=== PATIENT | female | born 1940 | race Caucasian/White ===

== ENCOUNTER 2024-07-13 12:02 | Inpatient (IN) | payer MEDICARE, BC ==
[~2024-07-13] VITALS: Ht 165.1 cm; Wt 63.7 kg
--- NOTE | 2024-07-13 11:41 | NUR ---
PT TO ROOM FROM VIA STRETCHER FROM ER. REPORT RECEIVED FROM ABRAHAN ONEAL. PT IS ALERT, ORIENTED, AND PLEASANT. PT DENIES PAIN AT THIS TIME. CALL LIGHT WITHIN REACH AND ROOM ORIENTATION DONE.
[~2024-07-13 12:02] MED LIST: ACETAMINOPHEN500 MG PO; ADULT LOW DOSE81 MG PO; AMLODIPINE BESYL5 MG PO; ATENOLOL25 MG PO; ATENOLOL50 MG PO; HYDROCHLOROTH12.5 MG PO; IBUPROFEN600 MG PO; LIPITOR20 MG; LISINOPRIL20 MG PO; NORVASC5 MG PO; OXYCODON-ACETA1 EAC2 PO; OXYCODONE HCL10 MG PO; TRAZODONE HCL100 MG PO; XARELTO10 MG PO; ZESTRIL10 MG PO
[2024-07-13] MEDS ORDERED: ANASTROZOLE1 MG PO (12:14)
[2024-07-13] MEDS ORDERED: DULOXETINE HCL30 MG PO (12:15)
[2024-07-13] MEDS ORDERED: TOLTERODINE TART4 MG PO (12:15)
[2024-07-13 12:18] LABS: BASOPHILS 0.4 % (0-2); EOSINOPHILS 0.4 % (0-6); HEMATOCRIT 29.5 % (35.0-50.0); HEMOGLOBIN 9.8 g/dL (12.0-18.0); LYMPHOCYTES 8.1 % (24-44); MCH 31.1 (27-36); MCHC 33.2 g/dl (30-36); MCV 93.6 fl (81-99); NEUTROPHILS 87.1 % (39-80); PLATELET COUNT 189 K/uL (140-440); RBC 3.16 M/ul (4.3-5.7); RDW 14.5 (10.5-15.0)
[2024-07-13 12:34] LABS: ALBUMIN 2.9 g/dL (3.4-5.0); ALBUMIN/GLOBULIN RATIO 1.16 (1.1-2.4); ANION GAP 13.3 (7-21); BILIRUBIN, TOTAL 0.4 ng/dL (0.2-1.0); BUN/CREATININE RATIO 56.16 (6.0-28.6); CALCIUM 8.4 mg/dL (8.5-10.1); CREATININE, SERUM 0.73 mg/dL (0.55-1.02); POTASSIUM 4.3 mmol/L (3.5-5.1); PROTEIN, TOTAL 5.4 g/dL (6.4-8.2)
[2024-07-13 13:29] LABS: ABO O; ANTIBODY SCREEN NEGATIVE; RH POSITIVE
[2024-07-13] MEDS ORDERED: ACETAMINOPHEN 500 MG TAB PO PRN (13:45)
[2024-07-13] MEDS ORDERED: LISINOPRIL20 MG PO (14:01)
[2024-07-13] MEDS ORDERED: ATORVASTATIN CA10 MG PO (14:01)
--- NOTE | 2024-07-13 14:14 | NUR ---
UR CLINICAL REVIEW: 2MN MEGA, MEETS OBS CRITERIA MEDICARE OBS 07/13/24 @ 1334 ORDER MATCHES STATUS NO AUTH REQUIRED PER MEDICARE RULES DC PLAN PENDING, LIKELY RETURN HOME WHEN STABLE.
[2024-07-13 14:20] VITALS: BP 130/57
[2024-07-13 14:26] LABS: PARTIAL THROMBOPLASTIN TIME 22.4 Sec (22.9-41.3)
[2024-07-13 14:28] LABS: INR 1.12 (0.80-1.30); PROTIME 13.7 Sec (11.2-14.2)
--- NOTE | 2024-07-13 15:12 | NUR ---
RESTING IN BED, NO REQUESTS AT THIS TIME. CALL LIGHT WITHIN REACH.
[2024-07-13 15:19] VITALS: BP 130/57
--- NOTE | 2024-07-13 15:20 | NUR ---
PATIENT IN BED AT THIS TIME. CALL LIGHT WITHIN REACH, NO FURTHER NEEDS AT THIS TIME.
--- NOTE | 2024-07-13 15:44 | NUR ---
MED REC COMPLETE
--- NOTE | 2024-07-13 16:50 | NUR ---
PT WAS JUST UP TO USE THE RESTROOM INDEPENDENTLY, TOLERATED WELL. PT HAD SM LIQUID BLOODY STOOL AND ALSO URINATED WITHOUT DIFFICULTY. PT'S IN ROOM VISITING. CALL LIGHT WITHIN REACH, NO REQUESTS AT THIS TIME.
[2024-07-13 18:13] VITALS: BP 114/52
--- NOTE | 2024-07-13 18:21 | NUR ---
PATIENT IN BED AT THIS TIME. PATIENT ASKED CRECHE ATTENDANT TO PLUG IN PATIENTS PHONE, CRECHE ATTENDANT PLUGGED IN PATIENT PHONE AT THIS TIME. CALL LIGHT WITHIN REACH, PATIENT HAS NO FURTHER NEEDS.
--- NOTE | 2024-07-13 18:30 | NUR ---
PT RESTING IN BED WITH CALL LIGHT WITHIN REACH. NO REQUESTS AT THIS TIME.
--- NOTE | 2024-07-13 19:38 | NUR ---
REPORT RECIEVED FROM DAY SHIFT RN. PATIENT RESTING IN BED, DENIES NEEDS AT THIS TIME. CALL LIGHT IN REACH.
--- NOTE | 2024-07-13 20:22 | NUR ---
ON FLOOR. STATES HE DOES NOT WANT A PHONE CALL ABOUT 2100 LABS THIS EVENING UNLESS HEMOGLBIN IS BELOW 8.
[2024-07-13] MEDS ORDERED: MELATONIN 3 MG TAB PO PRN (21:00)
[2024-07-13 21:06] LABS: BASOPHILS 0.9 % (0-2); EOSINOPHILS 0.4 % (0-6); HEMATOCRIT 25.7 % (35.0-50.0); HEMOGLOBIN 8.5 g/dL (12.0-18.0); LYMPHOCYTES 12.3 % (24-44); MCH 30.9 (27-36); MCV 93.8 fl (81-99); MONOCYTES 6.4 % (0-12); PLATELET COUNT 175 K/uL (140-440); RBC 2.74 M/ul (4.3-5.7); RDW 14.5 (10.5-15.0)
[2024-07-13 21:22] VITALS: BP 116/55
--- NOTE | 2024-07-13 21:24 | NUR ---
DATA WAREHOUSING ARCHITECT OBTAINED VITALS AND I&O. PT GIVEN FESH ICE WATER UPON REQUEST. PT STATES NO FURTHER NEEDS AT THIS TIME. CALL LIGHT WITHIN REACH.
--- NOTE | 2024-07-13 21:36 | NUR ---
PATIENT STATES SHE IS HAVING HEART. THIS RN PLACED CALL TO MD REGARDING HEART BURN SINCE NIO MAALOX IS NOT A CLEAR LIQUID. NEW ORDERS RECIEVED. VERIFIED USING REPEAT BACK METHOD. MD STATES "IF SHE IS STILL EXPERIENCING HEARTBURN DURING THE NIGHT YOU ARE OK TO ORDER HER MAALOX".
[2024-07-13] MEDS ORDERED: CALCIUM CARBONATE 500 MG CHEW PO ONE (21:45)
[2024-07-13] MEDS ORDERED: FAMOTIDINE 20 MG/ 2 ML VIAL IV ONE (21:45)
--- NOTE | 2024-07-13 22:08 | NUR ---
SCHEDULED MEDICATION ADMINISTERED. IV FLUSHES WNL. ASSESSMENT COMPLETE. PATIENT DENIES PAIN AT THIS TIME. PATIENT UP TO BATHROOM INDEPENDENTLY TO URINATE. PATIENT DID NOT HAVE BM AT THIS TIME. PATIENT DENIES BLOOD OR STOOL IN HER PAD. PATIENT BCAK TO BED. PATIENT HAS NO FURTHER NEEDS. BED ALARM ON FOR SAFETY. CALL LIGHT IN REACH.
--- NOTE | 2024-07-13 23:32 | NUR ---
PATIENT RESTING IN BED WITH EYES CLOSED. RESPIRATIONS EVEN AND UNLABORED. CALL LIGHT IN REACH.
[2024-07-14] VITALS (11 sets, daily range): BP systolic 104–131; BP diastolic 48–60
--- NOTE | 2024-07-14 01:18 | NUR ---
VS AND I&Os OBTAINED AND RECORDED. PATIENT UP TO BATHROOM INDEPENDENTLY TO URINATE. PATIENT BCAK TO BED. PATIENT DENIES BLOOD IN PAD OR PAIN. PATIENT BACK TO BED. PATIENT HAS NO FURTHER NEEDS. BED ALARM ON FOR SAFETY. CALL LIGHT IN REACH.
--- NOTE | 2024-07-14 03:30 | NUR ---
PATIENT RESTING IN BED ON RIGHT SIDE WITH EYES CLOSED. RESPIRATIONS EVEN AND UNLABORED. CALL LIGHT IN REACH.
--- NOTE | 2024-07-14 05:28 | NUR ---
CIVIL STRUCTURAL DESIGNER OBTIANED VITALS AND I&O. PT STATES NO NEEDS AT THIS TIME. CALL LIGHT WITHIN REACH.
[2024-07-14 05:29] LABS: BASOPHILS 0.7 % (0-2); EOSINOPHILS 2.2 % (0-6); HEMATOCRIT 23.7 % (35.0-50.0); HEMOGLOBIN 7.9 g/dL (12.0-18.0); LYMPHOCYTES 19.7 % (24-44); MCH 31.4 (27-36); MCHC 33.6 g/dl (30-36); MCV 93.7 fl (81-99); MONOCYTES 9.2 % (0-12); NEUTROPHILS 68.2 % (39-80); PLATELET COUNT 157 K/uL (140-440); RBC 2.53 M/ul (4.3-5.7); RDW 14.3 (10.5-15.0)
[2024-07-14 05:41] LABS: ANION GAP 9.9 (7-21); BUN/CREATININE RATIO 31.94 (6.0-28.6); CALCIUM 8.2 mg/dL (8.5-10.1); CREATININE, SERUM 0.72 mg/dL (0.55-1.02); MAGNESIUM 1.9 mg/dL (1.8-2.4); POTASSIUM 3.9 mmol/L (3.5-5.1)
--- NOTE | 2024-07-14 05:54 | NUR ---
BED ALARM ANSWERED. PT SITTING AT EDGE OF BED STATING THAT SHE NEEDED TO USE BATHROOM. MAIL AGENT SBA TO BATHROOM. PT VOIDED AND WAS ASSISTED BACK TO BED. OUTPUT NOTED. PT GIVEN FRESH ICE WATER UPON REQUEST. PT STATES NO FURTHER NEEDS AT THIS TIME. CALL LIGHT WITHIN REACH AND BED ALARM ON.
--- NOTE | 2024-07-14 07:15 | NUR ---
REPORT RECIEVED FROM JM VALENZUELA. PT LAYING IN BED WITH EYES CLOSED, RR EVEN AND UNLBAORED. NO NEEDS IDENTIFIED AT THIS TIME. CALL LIGHT IN REACH. BED ALARM ON.
--- NOTE | 2024-07-14 08:08 | NUR ---
PATIENT IN BED AT THIS TIME. CALL LIGHT WITHIN REACH, NO FURTHER NEEDS AT THIS TIME.
--- NOTE | 2024-07-14 08:53 | NUR ---
VISITED TO INQUIRE IF PT DESIRED CREDIT REFERENCE CLERK VISIT. PT ACCEPTED OFFER. SCREEN ROOM OPERATOR RELAYED REQUEST TO CREDIT REFERENCE CLERK VIA NOT IN SACRISTRY PRE USUAL PRACTICE.
[2024-07-14] MEDS ORDERED: DULOXETINE HCL 30 MG CAP PO SCH (09:00)
[2024-07-14] MEDS ORDERED: ANASTROZOLE 1 MG TAB PO SCH (09:00)
[2024-07-14] MEDS ORDERED: PANTOPRAZOLE SODIUM 40 MG TABEC PO SCH (09:00)
--- NOTE | 2024-07-14 09:52 | NUR ---
IN TO ADMINISTER MEDICAITONS, SEE MAR. PT SITTING UP IN BED AND TAKES PO MEDICATIONS WITH NO ISSUES. PT DENIES PAIN, NAUSEA, DIZZINESS OR LIGHTHEADEDNESS AT THIS TIME. ASSESSMENT COMPLETE. LUNG SOUNDS CLEAR. BOWEL TONES ACTIVE. ABD SOFT AND NON-TENDER WITH PALPATION. RADIAL PULSES PALPABLE, EQUAL AND STRONG. PEDAL PULSES PALPABLE, EQUAL AND STRONG. 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 IV FLUSHES WNL. HAT IN TOILET EMPTIED. TRAY REMOVED. WATER PROVIDED. PT DENIES ANY OTHER NEEDS AT THIS TIME. CALL LIGHT IN REACH. PT A&O TO ALL.
--- NOTE | 2024-07-14 11:04 | NUR ---
PATIENT IN BED AT THIS TIME. VITALS AND I&O'S CHARTED. CALL LIGHT WITHIN REACH, NO FURTHER NEEDS AT THIS TIME.
--- NOTE | 2024-07-14 11:16 | NUR ---
Spoke with Caity. She states she and her spouse live on [address]. Spouse has back issues and frequent falls. Caity is his cg. He is unable to stay alone. She states they live in a 1 story home with 3 steps. She is active, drives, and does not use any DME. There are grab bars in the walk in shower and the bathroom. She denies any financial issues. She plans on dc to home when she is cleared medically.
--- NOTE | 2024-07-14 11:26 | NUR ---
IN TO ROUND ON PT. PT SITTING UP IN BED AND RESPONDS WHEN ADDRESSED. PT REPORTING USING RESTROOM. HAT EMPTIED. PT DENIES ANY OTHER NEEDS AT THIS TIME. CALL LIGHT IN REACH.
[2024-07-14] MEDS ORDERED: PHARMACY RENAL DOSE ADJUSTMENT 1 DOSE MISC PO SCH (12:00)
--- NOTE | 2024-07-14 13:30 | NUR ---
IN TO ROUND ON PT. PT SITTING UP IN BED VISITING WITH GRANDSON. FEMALE VISITOR ARRIVES TO ROOM. PT REPORTING BEING DONE WITH LUNCH TRAY, TRAY REMOVED. PT DENIES ANY OTHER NEEDS AT THIS TIME. CALL LIGHT IN REACH.
--- NOTE | 2024-07-14 13:50 | NUR ---
PATIENT IN BED AT THIS TIME. VITALS AND I&O'S CHARTED. CALL LIGHT WITHIN REACH, NO FURTHER NEEDS AT THIS TIME.
[2024-07-14 14:04] LABS: BASOPHILS 0.8 % (0-2); EOSINOPHILS 1.8 % (0-6); HEMATOCRIT 24.9 % (35.0-50.0); HEMOGLOBIN 8.3 g/dL (12.0-18.0); LYMPHOCYTES 20.8 % (24-44); MCH 31.3 (27-36); MCHC 33.4 g/dl (30-36); MCV 93.6 fl (81-99); MONOCYTES 8.2 % (0-12); NEUTROPHILS 68.4 % (39-80); PLATELET COUNT 165 K/uL (140-440); RBC 2.66 M/ul (4.3-5.7); RDW 14.6 (10.5-15.0)
--- NOTE | 2024-07-14 15:48 | NUR ---
IN TO ROUND ON PT. PT SITTING UP IN BED VISITING WITH GRANDSON. PT DENIES NAUSEA, LIGHT HEADED, DIZZINESS. ASSESSMENT COMPLETE. BOWEL TONES ACTIVE. ABD SOFT AND NON-TENDER WITH PALPATION. WATER PROVIDED. PT DENIES ANY OTHER NEEDS AT THIS TIME. CALL LIGHT IN REACH.
--- NOTE | 2024-07-14 16:18 | NUR ---
Pt report received from JM Brunner
--- NOTE | 2024-07-14 18:13 | NUR ---
PATIENT IN BED AT THIS TIME. VITALS AND I&O'S CHARTED. CALL LIGHT WITHIN REACH, NO FURTHER NEEDS AT THIS TIME.
--- NOTE | 2024-07-14 19:32 | NUR ---
REPORT RECIEVED FROM DAY SHIFT RN. PATIENT RESTING IN BED WITH VISITOR IN ROOM. PATIENT HAS NO CURRENT NEEDS. CALL LIGHT IN REACH.
--- NOTE | 2024-07-14 20:35 | NUR ---
PATIENT RESTING IN BED WITH DAUGHTER IN LAW IN THE ROOM. VS AND I&Os OBTAINED AND RECORDED. IV FLUSHED WNL. ASESSMENT COMPLETE. PATIENT DENIES PAIN. NO FURTHER NEEDS AT THIS TIME. CALL LIGHT IN REACH.
[2024-07-14 21:07] LABS: EOSINOPHILS 2.2 % (0-6); HEMATOCRIT 23.9 % (35.0-50.0); HEMOGLOBIN 7.9 g/dL (12.0-18.0); LYMPHOCYTES 22.7 % (24-44); MCH 31.1 (27-36); MCHC 33.2 g/dl (30-36); MCV 93.8 fl (81-99); MONOCYTES 9.9 % (0-12); NEUTROPHILS 64.2 % (39-80); PLATELET COUNT 161 K/uL (140-440); RBC 2.54 M/ul (4.3-5.7); RDW 14.4 (10.5-15.0)
--- NOTE | 2024-07-14 22:39 | NUR ---
PATIENT RESTING IN ROOM SITTING AT THE EDGE OF THE BED. PATIENT DENIES NEEDS AT THIS TIME. CALL LIGHT IN REACH.
--- NOTE | 2024-07-15 00:42 | NUR ---
PATIENT RESTING IN BED ON RIGHT SIDE WITH EYES CLOSED. RESPIRATIONS EVEN AND UNLABORED. CALL LIGHT IN REACH.
--- NOTE | 2024-07-15 02:27 | NUR ---
PATIENT RESTING IN BED WITH EYES CLOSED. RESPIRATIONS EVEN AND UNLABORED. CALL LIGHT IN REACH.
--- NOTE | 2024-07-15 03:52 | NUR ---
PATIENT RESTING IN BED WITH EYES CLOSED. RESPIRATIONS EVEN AND UNLABORED. CALL LIGHT IN REACH.
[2024-07-15 05:17] VITALS: BP 162/69
--- NOTE | 2024-07-15 05:25 | NUR ---
VS AND I&Os OBTAINED AND REOCRDED. PATIENT STATES "I WILL TELL YA, THERE WAS SOME BLOOD WHEN I WIPED". PATIENT STATES SHE DID NOT HAVE A BM, AND THE BLOOD WAS A BRIGHT RED COLOR. PATIENT DENIES PAIN. BOWEL TONES ACTIVE. THIS RN WAS ABOUT TO LEAVE THE ROOM AND PATIENT STATES "OH, I THINK THIS THING JUST CAME OUT. I HAVE BEEN MOVING AROUND". IV WAS OUT OF ARM, WITH TIP INTACT. PATIENT NO FURTHER NEEDS. CALL LIGHT IN REACH.
[2024-07-15 05:27] LABS: BASOPHILS 0.6 % (0-2); EOSINOPHILS 3.9 % (0-6); HEMATOCRIT 23.6 % (35.0-50.0); LYMPHOCYTES 19.4 % (24-44); MCH 31.5 (27-36); MCHC 33.8 g/dl (30-36); MCV 93.4 fl (81-99); MONOCYTES 8.2 % (0-12); NEUTROPHILS 67.9 % (39-80); PLATELET COUNT 153 K/uL (140-440); RBC 2.53 M/ul (4.3-5.7); RDW 14.7 (10.5-15.0)
--- NOTE | 2024-07-15 06:42 | NUR ---
UPDATED VIA TELEPHONE REGARDING PATIENTS NO IV ACCESS. STATES "IT IS OK TO LEAVE THE IV OUT FOR NOW. I WILL COME SEE HER".
--- NOTE | 2024-07-15 07:15 | NUR ---
REPORT REC'D FROM FLORINA ONEAL. PT RESTING IN BED, NO ACUTE DISTRESS OR C/O NOTED
[2024-07-15 09:37] VITALS: BP 165/76
[2024-07-15] MEDS ORDERED: atenoloL 25 MG TAB PO SCH (09:40)
[2024-07-15] MEDS ORDERED: lisinopriL 20 MG TAB PO SCH (09:41)
[2024-07-15 10:27] VITALS: BP 165/76
[2024-07-15 11:06] VITALS: BP 124/57
--- NOTE | 2024-07-15 11:06 | NUR ---
DID HRLY ROUNDING ON PT SHE IS SITTING IN THE CHAIR ON HER IPAD. I ASKED PT IF SHE NEEDED ANYTHING PT DIDNT. NURSE CAME IN TO GIVE HER MEDICATION CALL LIGHT IS WITHIN REACH.
== END 2024-07-15 12:47 | disposition home or self-care (01) | DRG 379 ==
LOC: ED 12:02 → MS 12:04
PROVIDERS: Emergency Medicine; ADMIT Student in an Organized Health Care Education/Training Program; ATTEND Student in an Organized Health Care Education/Training Program
DX: K92.1 Melena (principal); I10 Essential (primary) hypertension; F39 Unspecified mood [affective] disorder; Z66 Do not resuscitate; Z98.890 Other specified postprocedural states; Z92.21 Personal history of antineoplastic chemotherapy; Z85.3 Personal history of malignant neoplasm of breast; Z87.19 Personal history of other diseases of the digestive system; Z87.891 Personal history of nicotine dependence; Z79.899 Other long term (current) drug therapy; Z79.82 Long term (current) use of aspirin
CPT/HCPCS: 36415; 80048; 80053; 83735; 85025; 85610; 85730; 86850; 86900; 86901; 96374; A9270; G0378

== ENCOUNTER 2024-08-15 10:01 | Inpatient (IN) | payer MEDICARE, BC ==
[~2024-08-15] VITALS: Ht 165.1 cm; Wt 62.0 kg
[~2024-08-15 10:01] MED LIST changes: +ANASTROZOLE1 MG PO; +ATORVASTATIN CA10 MG PO; +DULOXETINE HCL30 MG PO; -HYDROCHLOROTH12.5 MG PO; +TOLTERODINE TART4 MG PO
[2024-08-15 10:46] LABS: BASOPHILS 1.3 % (0-2); EOSINOPHILS 1.9 % (0-6); HEMATOCRIT 28.6 % (35.0-50.0); HEMOGLOBIN 9.4 g/dL (12.0-18.0); LYMPHOCYTES 13.7 % (24-44); MCH 30.7 (27-36); MCHC 32.8 g/dl (30-36); MCV 93.6 fl (81-99); MONOCYTES 8.3 % (0-12); NEUTROPHILS 74.8 % (39-80); PLATELET COUNT 249 K/uL (140-440); RBC 3.06 M/ul (4.3-5.7); RDW 15.5 (10.5-15.0)
[2024-08-15 10:52] LABS: PROTIME 12.8 Sec (11.2-14.2)
[2024-08-15 10:54] LABS: PARTIAL THROMBOPLASTIN TIME 20.8 Sec (22.9-41.3)
[2024-08-15 10:57] LABS: ALBUMIN 3.4 g/dL (3.4-5.0); ALBUMIN/GLOBULIN RATIO 1.17 (1.1-2.4); ANION GAP 12.6 (7-21); BILIRUBIN, TOTAL 0.3 ng/dL (0.2-1.0); BUN/CREATININE RATIO 34.31 (6.0-28.6); CALCIUM 9.3 mg/dL (8.5-10.1); CREATININE, SERUM 1.02 mg/dL (0.55-1.02); POTASSIUM 4.6 mmol/L (3.5-5.1); PROTEIN, TOTAL 6.3 g/dL (6.4-8.2)
[2024-08-15 11:17] LABS: ABO O; ANTIBODY SCREEN NEGATIVE; RH POSITIVE
[2024-08-15 12:43] LABS: BASOPHILS 0.7 % (0-2); EOSINOPHILS 1.7 % (0-6); HEMOGLOBIN 8.6 g/dL (12.0-18.0); MCH 30.8 (27-36); MCHC 33.1 g/dl (30-36); MONOCYTES 8.1 % (0-12); NEUTROPHILS 76.5 % (39-80); PLATELET COUNT 218 K/uL (140-440); RDW 15.5 (10.5-15.0)
[2024-08-15] MEDS ORDERED: PANTOPRAZOLE SODIUM 40 MG/10 ML VIAL IV ONE (13:00)
[2024-08-15] MEDS ORDERED: PANTOPRAZOLE SODIUM 40 MG/10 ML VIAL IV SCH (13:31)
[2024-08-15 14:02] VITALS: BP 116/50
--- NOTE | 2024-08-15 14:05 | NUR ---
REPORT RECEIVED FROM SHANT Oneal RN IN ED. VINH Hitchcock RN AND THIS RN BRING PT TO ROOM 123. VS AND WT TAKEN. PT ADMITTED. ASSESSMENT COMPLETE. PT ALERT AND ORIENTED, PLEASANT. LUNG SOUNDS CLEAR THROUGHOUT, HEART TONES HEARD, NOTED SLIGHTLY MINERVA AT 58BPM. PT BOWEL TONES HEARD AND ACTIVE, TENDER TO RUQ. PT REPORTS EPISODE OF BLACK STOOL THIS AM BEFORE COMING TO HOSPITAL. PT PULSES FELT STRONG IN BUE, FAINT IN BLE, CAP REFILL NOTED AT 5 SECONDS IN FINGERS AND TOES. PT REPORTS CHRONIC NUMBNESS IN BLE, STATES "IT SOMETIMES FEELS LIKE A TIGHT BELT IS AROUND MY FEET." PT REPORTING 5/10 PAIN IN LEFT LOWER BACK, STATES THIS IS CHRONIC. HEAT PAD OFFERED AND ACCEPTED. PT REQUESTS USING THE RESTROOM, PT AMBULATES WITH SBA AND URINATES CLEAR, YELLOW URINE. PT WEAR PADS CHRONICALLY FOR DRIBBLING, SHE CHANGES IT AT THIS TIME. NO OTHER NEEDS NOTED, CALL LIGHT AND PERSONAL BELONGINGS IN REACH.
[2024-08-15] MEDS ORDERED: AMLODIPINE BESYL5 MG PO (14:10)
[2024-08-15 14:28] LABS: EOSINOPHILS 1.7 % (0-6); HEMATOCRIT 26.1 % (35.0-50.0); HEMOGLOBIN 8.6 g/dL (12.0-18.0); LYMPHOCYTES 14.5 % (24-44); MCH 30.6 (27-36); MCHC 32.7 g/dl (30-36); MCV 93.5 fl (81-99); MONOCYTES 8.2 % (0-12); NEUTROPHILS 74.6 % (39-80); PLATELET COUNT 227 K/uL (140-440); RDW 15.3 (10.5-15.0)
--- NOTE | 2024-08-15 15:14 | NUR ---
IN WITH DR. SHEETS AND VINH Hitchcock RN. KORTNEY EXAMINES PT AND ANSWERED QUESTIONS, EDUCATES PT ON POSSIBLE CAUSES OF BLEEDING. KORTNEY STATES HE PLANS ON PERFORMING ENDOSCOPY AND COLONOSCOPY TOMORROW 08/16/24. PT EXPRESSES UNDERSTANDING IS AGREEABLE TO PLAN. NO OTHER NEEDS AT THIS TIME, CALL LIGHT AND PERSONAL BELONGINGS IN REACH.
--- NOTE | 2024-08-15 15:21 | NUR ---
PATIENT ALERT AND ORIENTED, SITTING UP IN BED. STATES SHE LIVES IN HOUSE WITH SPOUSE. DEMOGRAPHICS VERIFIED. PHYSICAL ADDRESS IS [address] [place] [address], [place] [address]. STATES 3 STEPS TO GET INSIDE, SHE HAS NO ISSUES WITH STAIRS. STATES SHE USES NO DME, BUT HAS WALKER AND CANE IN HOME THAT BELONG TO SPOUSE. STATES SHE CONTINUES TO DRIVE WITHOUT ISSUES. NO FINANCIAL HARDSHIP AT THIS TIME. STATES SHE IS ABLE TO PAY UTILITIES, FOR FOOD AND MEDICATIONS. DENIES ANY NEEDS AT HOME AT THIS TIME. STATES SHE WILL NOTIFY STAFF IF NEEDS ARISE.
[2024-08-15] MEDS ORDERED: POLYETHYLENE GLYCOL 3350 BOTTLE PO ONE (15:30)
[2024-08-15] MEDS ORDERED: I-CAPS WITH LU1 EACH PO (15:36)
[2024-08-15] MEDS ORDERED: VITAMIN D325 MCG PO (15:36)
[2024-08-15] MEDS ORDERED: VITAMIN C500 M1 PO (15:36)
[2024-08-15] MEDS ORDERED: IRON325 M1 PO (15:37)
[2024-08-15] MEDS ORDERED: HYDROCHLOROTH12.5 MG PO (15:37)
--- NOTE | 2024-08-15 15:38 | NUR ---
MED REC COMPLETE
--- NOTE | 2024-08-15 15:51 | NUR ---
IN TO ADMINISTER PT MEDICATION PER JAN. PT IS STARTING BOWEL PREP PRIOR TO PLANNED AM COLONOSCOPY/ENDOSCOPY. BSC MOVED NEAR PT BEDSIDE, TOILET PAPER PROVIDED. PT ADVISED TO CALL SOON SHE FEELS ANY "RUMBLINGS" IN HER STOMACH. PT IN GOOD SPIRITS. NO OTHER NEEDS NOTED AT THIS TIME, CALL LIGHT AND PERSONAL BELONGINGS IN REACH.
--- NOTE | 2024-08-15 16:37 | NUR ---
IN TO ROUND ON PT. PT MCFP THROUGH BOWEL PREP (ONE BOTTLE EMPTY, JUST STARTING ON SECOND BOTTLE). PT REPORTS NO NEEDS AT THIS TIME, CALL LIGHT AND PERSONAL BELONGINGS IN REACH.
--- NOTE | 2024-08-15 17:21 | NUR ---
IN PT CALLING TO USE RESTROOM. PT HAS LARGE WATERY BLACK STOOL. PT REPORTS NO DIZZINESS OR LIGHTHEADEDNESS WITH AMBULATION. NO N/V. NO NEEDS AT THIS TIME, CALL LIGHT AND PERSONAL BELONGINGS IN REACH.
[2024-08-15 17:24] VITALS: BP 116/50
[2024-08-15 17:32] VITALS: BP 96/53
--- NOTE | 2024-08-15 18:06 | NUR ---
PATIENT UP TO BATHROOM AND BACK TO BED, SBA. CALL LIGHT IN REACH. NO FURTHER NEEDS AT THIS TIME.
--- NOTE | 2024-08-15 18:53 | NUR ---
PATIENT IN BED AT THIS TIME. INDUSTRIAL ELECTRICIAN CHARTED VITALS AND I&O'S. CALL LIGHT WITHIN REACH, NO FURTHER NEEDS AT THIS TIME.
--- NOTE | 2024-08-15 19:24 | NUR ---
REPORT RECIEVED FROM DAY SHIFT RN. PATIENT RESTING IN BED. DENIES NEEDS AT THIS TIME. CALL LIGHT IN REACH.
[2024-08-15 20:53] VITALS: BP 93/46
[2024-08-15] MEDS ORDERED: DULOXETINE HCL 30 MG CAP PO SCH (21:00)
--- NOTE | 2024-08-15 21:23 | NUR ---
MD TO FLOOR. THIS RN TALKED WITH MD REGARDING PATIENT NOT ON IV FLUID AND PATIENTS RECENT BP. NEW ORDERS RECIEVED. ORDERS VERIFIED USING REPEAT BACK METHOD.
[2024-08-15] MEDS ORDERED: LACTATED RINGER'S 1,000 ML IV SCH (21:30)
[2024-08-15] MEDS ORDERED: LACTATED RINGER'S 1,000 ML IV ONE (21:30)
[2024-08-15 21:39] VITALS: BP 93/46
--- NOTE | 2024-08-15 22:00 | NUR ---
PATIENT RESTING IN BED. SCHEDULED MEDICATION ADMINISTERED. IV FLUID INFUSING PER ORDER. IV FLUSHES WNL. PATIENT EDUCATED TO CALL IF SHE FEELS LIGHT HEADED OR NEED HELPS USING THE BSC. PATIENT VEBILIZES UNDERSTANDING. ASSESSMENT COMPLETE. CALL LIGHT WITHIN REACH.
[2024-08-15 22:08] LABS: BASOPHILS 0.8 % (0-2); EOSINOPHILS 2.3 % (0-6); HEMATOCRIT 26.1 % (35.0-50.0); HEMOGLOBIN 8.5 g/dL (12.0-18.0); LYMPHOCYTES 15.1 % (24-44); MCH 30.8 (27-36); MCHC 32.8 g/dl (30-36); MONOCYTES 8.4 % (0-12); NEUTROPHILS 73.4 % (39-80); PLATELET COUNT 239 K/uL (140-440); RBC 2.77 M/ul (4.3-5.7); RDW 15.6 (10.5-15.0)
--- NOTE | 2024-08-15 22:25 | NUR ---
PATIENT BSC EMPTIED. PATIENT BACK TO BED. NO FURTHER NEEDS. CALL LIGHT IN REACH.
--- NOTE | 2024-08-15 23:00 | NUR ---
NEW BAG IV FLUID INFUSING PER ORDER. NO FURTHER NEEDS. CALL LIGHT IN REACH.
[2024-08-16] VITALS (11 sets, daily range): BP systolic 104–137; BP diastolic 43–55
--- NOTE | 2024-08-16 00:28 | NUR ---
PATIENT RESTING IN BED. DENIES NEEDS AT THIS TIME. PATIENT NPO WITH NO FLUIDS AT BEDSIDE. NO FURTHER NEEDS. CALL LIGHT IN REACH.
--- NOTE | 2024-08-16 01:18 | NUR ---
PATIENT RESTING IN BED. VS AND I&Os OBTAINED AND RECORDED. PATIENT DENIES PAIN. PATIENT HAS NO FURTHER NEEDS. CALL LIGHT IN REACH.
--- NOTE | 2024-08-16 02:58 | NUR ---
PATIENT RESTING IN BED ON BACK WITH EYES CLOSED. RESPIRATIONS EVEN AND UNLABORED. CALL LIGHT IN REACH.
--- NOTE | 2024-08-16 04:47 | NUR ---
PATIENT RESTING IN BED. DENIES NEEDS AT THIS TIME. CALL LIGHT IN REACH.
--- NOTE | 2024-08-16 05:46 | NUR ---
PATIENT RESTING IN BED. PATIENT CONSENT SIGNED. NEW GOWN PLACED ON PATIENT. JEWERLY AND UNDERWEAR REMOVED OFF OF PATIENT. PATIENTS PURSE WITH JEWERLY ARE IN PATIENTS CLOSET IN ROOM. PATIENT STATES SHE IS COMFORTABLE WITH THEM STAYING IN THERE. LR WITH STRAIGHT TUBING AND EXTENSION SET HUNG IN ROOM. PATIENT DENIES FURTHER NEEDS OR QUESTIONS. PATIENT HAS NO FURTHER NEEDS. CALL LIGHT IN REACH.
[2024-08-16 05:47] LABS: BASOPHILS 1.1 % (0-2); EOSINOPHILS 2.7 % (0-6); HEMATOCRIT 25.5 % (35.0-50.0); HEMOGLOBIN 8.3 g/dL (12.0-18.0); LYMPHOCYTES 19.3 % (24-44); MCH 30.7 (27-36); MCHC 32.6 g/dl (30-36); MCV 94.3 fl (81-99); MONOCYTES 8.9 % (0-12); PLATELET COUNT 212 K/uL (140-440); RDW 15.4 (10.5-15.0)
[2024-08-16 05:58] LABS: BUN/CREATININE RATIO 24.39 (6.0-28.6); CALCIUM 8.9 mg/dL (8.5-10.1); CREATININE, SERUM 0.82 mg/dL (0.55-1.02)
[2024-08-16] MEDS ORDERED: CEFAZOLIN SODIUM 2 GM/20 ML SYR ONE (06:21)
[2024-08-16] MEDS ORDERED: CEFAZOLIN SODIUM 2 GM/20 ML SYR IV ONE ×2 (06:30→10:00)
--- NOTE | 2024-08-16 06:42 | NUR ---
PATIENT RESTING IN BED. SCHEDULED IV ABX ADMINISTERED PER ORDER. PATIENT DENIES FURTHER NEEDS. CALL LIGHT IN REACH.
--- NOTE | 2024-08-16 07:05 | NUR ---
PT AWAKE AND ALERT, TRANSFERRED WITH SBA FROM BED TO STRETCHER. DOWN FOR PROCEDURES WITH OR STAFF.
[2024-08-16] MEDS ORDERED: IBLOOD GLUCOSE TEST STRIP 1 EA TEST VI PRN (07:15)
[2024-08-16] MEDS ORDERED: NALOXONE HCL 0.4 MG SYR IV PRN (07:15)
[2024-08-16] MEDS ORDERED: fentaNYL citrate 50 MCG/ML SDV IV PRN (07:15)
[2024-08-16] MEDS ORDERED: LIDOCAINE HCL 2% 5 ML SDV ONE (07:36)
[2024-08-16] MEDS ORDERED: propofoL 200 MG/20 ML VIAL ONE (08:08)
--- NOTE | 2024-08-16 08:33 | NUR ---
08/16/24 0833 Peggy Martinez 0818 PT ARRIVED IN PACU SLEEPY WITH NO C/O'S. ABD SOFT. 0830 OXYGEN REMOVED. SATS 95-99% ON RA.
[2024-08-16] MEDS ORDERED: FLU VACC TS2024(65UP)/MF59C/PF 1 EACH SYR IM SCH (09:00)
--- NOTE | 2024-08-16 09:10 | NUR ---
PT BROUGHT BACK FROM PACU PER STRETCHER AND REPORT RECEIVED FROM PREETI ONEAL. PT AMBULATED WITH MINIMAL ASSIST FROM STRETCHER IN [place] TO BED IN HER ROOM. PT TOLERATED WELL. VS TAKEN. INSTRUCTED PT TO CALL FOR ASSISTANCE IF SHE NEEDS TO USE THE RESTROOOM, PT STATED UNDERSTANDING. CALL LIGHT WITHIN REACH. NO REQUESTS AT THIS TIME.
[2024-08-16] MEDS ORDERED: PANTOPRAZOLE SODIUM 40 MG TABEC PO SCH (09:30)
--- NOTE | 2024-08-16 09:30 | NUR ---
Spoke with Caity. She has returned from her EGD/Cscope. She denies needs. States she has a duodenal ulcer. plans on pt staying tonight and will dc to home. Caity states her sister is here and staying with Samir while she is in the hospital. Plans on dc to home tomorrow.
--- NOTE | 2024-08-16 09:48 | NUR ---
UR CLINICAL REVIEW: 2 MN FOR VERSALUS-MEETS INPT CRITERIA MEDICARE INPT 08/15/24 @ 1332 ORDER MATCHES REG NO AUTH REQUIRED PER MEDICARE GUIDELINES DISCHARGE IN 24-48 HOURS PENDING SERIAL LABS
--- NOTE | 2024-08-16 10:14 | NUR ---
PT SITTIN UP AT SIDE OF BED, DENIES PAIN. PT WAS OFFERED FOOD OR DRINK OTHER THAN WATER AND STATED THAT SHE WOULD LIKE TO WAIT FOR LUNCH. PT AWAKE AND ALERT. CALL LIGHT WITHIN REACH.
[2024-08-16] MEDS ORDERED: SUCRALFATE 1 GM TAB PO SCH (11:00)
[2024-08-16] MEDS ORDERED: PHARMACY RENAL DOSE ADJUSTMENT 1 DOSE MISC PO SCH (12:00)
--- NOTE | 2024-08-16 13:42 | NUR ---
VISITED DURING SPIRITUAL CARE ROUNDS. PT APPEARED TO BE SLEEPING. DID NOT DISTURB. PROVIDED PRAYER.
--- NOTE | 2024-08-16 13:45 | NUR ---
PATIENT IN BED AT THIS TIME. PUBLISHING SPECIALIST CHARTED VITALS AND I&OS'S. CALL LIGHT WITHIN REACH, NO FURTHER NEEDS AT THIS TIME.
--- NOTE | 2024-08-16 14:19 | NUR ---
PT RESTING IN BED, LAB WAS JUST IN TO DRAW, NO REQUESTS AT THIS TIME. PT STATES SHE IS TRYING TO REST AFTER HER "BUSY NIGHT". CALL LIGHT WITHIN REACH.
[2024-08-16 14:21] LABS: EOSINOPHILS 1.4 % (0-6); LYMPHOCYTES 13.7 % (24-44); MCHC 33.3 g/dl (30-36); MCV 93.1 fl (81-99); MONOCYTES 9.8 % (0-12); NEUTROPHILS 74.1 % (39-80); PLATELET COUNT 202 K/uL (140-440); RBC 2.58 M/ul (4.3-5.7); RDW 15.8 (10.5-15.0)
--- NOTE | 2024-08-16 16:20 | NUR ---
PT AMBULATED TO RESTROOM, TOLERATED WELL. ICE WATER REFRESHED REQUESTED. NO OTHER REQUESTS AT THIS TIME.
--- NOTE | 2024-08-16 17:48 | NUR ---
PT SITTING UP IN BED EATING DINNER, NO REQUESTS AT THIS TIME. CALL LIGHT WITHIN REACH.
--- NOTE | 2024-08-16 18:56 | NUR ---
PT SITTING IN BED WATCHING TV, NO REQUESTS AT THIS TIME. CALL LIGHT WITHIN REACH.
--- NOTE | 2024-08-16 19:15 | NUR ---
REPORT RECEIVED FROM VINH ONEAL. BOARD UPDATED. pt RESTING IN THE BED. NO OTHER NEEDS AT THIS TIME. CALL LIGHT WITHIN REACH.
--- NOTE | 2024-08-16 21:55 | NUR ---
ASSESSMENT DONE. BOWEL TONE ACTIVE. SCHEDULED MEDICATION ADMINISTERED. IV ASSESSED, WNL. pt DENIES ANY OTHER NEEDS AT THIS TIME. CALL LIGHT WITHIN REACH.
[2024-08-16 22:02] LABS: BASOPHILS 3.1 % (0-2); EOSINOPHILS 1.9 % (0-6); HEMATOCRIT 24.9 % (35.0-50.0); MCH 30.2 (27-36); MCHC 32.3 g/dl (30-36); MCV 93.5 fl (81-99); MONOCYTES 7.4 % (0-12); NEUTROPHILS 73.6 % (39-80); PLATELET COUNT 212 K/uL (140-440); RBC 2.66 M/ul (4.3-5.7); RDW 15.6 (10.5-15.0)
--- NOTE | 2024-08-16 23:30 | NUR ---
pt CALLED AND REQUESTED A NEW BRIEF AND A NEW PAD. pt BACK TO BED FROM THE BSC. pt DENIES ANY OTHER NEEDS AT THIS TIME. CALL LIGHT WITHIN REACH.
--- NOTE | 2024-08-17 01:16 | NUR ---
pt RESTING IN THE BED WITH EYES CLOSED. RR EVEN AND UNLABORED. CALL LIGHT WITHIN REACH.
--- NOTE | 2024-08-17 03:32 | NUR ---
pt RESTING IN THE BED. pt DENIES ANY OTHER NEEDS AT THIS TIME. CALL LIGHT WITHIN REACH.
[2024-08-17 05:39] LABS: EOSINOPHILS 3.1 % (0-6); HEMATOCRIT 24.3 % (35.0-50.0); HEMOGLOBIN 8.2 g/dL (12.0-18.0); LYMPHOCYTES 19.3 % (24-44); MCH 31.1 (27-36); MCHC 33.8 g/dl (30-36); MCV 92.1 fl (81-99); MONOCYTES 9.1 % (0-12); NEUTROPHILS 67.5 % (39-80); PLATELET COUNT 208 K/uL (140-440); RBC 2.63 M/ul (4.3-5.7); RDW 15.5 (10.5-15.0)
[2024-08-17 05:47] LABS: ANION GAP 10.3 (7-21); BUN/CREATININE RATIO 16.92 (6.0-28.6); CALCIUM 8.8 mg/dL (8.5-10.1); CREATININE, SERUM 0.65 mg/dL (0.55-1.02); POTASSIUM 4.3 mmol/L (3.5-5.1)
[2024-08-17 05:51] VITALS: BP 149/71
[2024-08-17 05:52] VITALS: BP 149/71
--- NOTE | 2024-08-17 06:30 | NUR ---
pt RESTED THROUGH OUT THE NIGHT. pt DENIES HAVING ANY MORE BLOODY STOOL. NO OTHER CONCERNS AT THIS TIME.
--- NOTE | 2024-08-17 07:34 | NUR ---
RECIEVED SHIFT REPORT. PT IS AWAKE IN BED, DENIES NEEDS. EAGER TO GO HOME. CALL LIGHT IN REACH
--- NOTE | 2024-08-17 08:47 | NUR ---
VISITED DURING SPIRITUAL CARE ROUNDS. PT EATING BREAKFAST SO SHORT VISIT. PT IN GOOD SPIRITS, EXPRESSED HOPEFUL ANTICIPATION OF TIMELY DISCHARGE, REQUESTED MD OPHTHALMOLOGIST VISIT. STUDENT ASSISTANT PROVIDED SUPPORTIVE PRESENCE, HOSPITALITY, PRAYER. INFORMED MD OPHTHALMOLOGIST OF DESIRED VISIT.
--- NOTE | 2024-08-17 08:49 | NUR ---
MORNING ASSESSMENT COMPLETE. PT AWAKE IN BED, TRE PAIN OR DISCOMFORT. BOWEL TONES ACTIVE. EAGER TO HOME. DENIES NEEDS. CALL LIGHT IN REACH
--- NOTE | 2024-08-17 08:50 | NUR ---
Spoke with Caity. She denies any needs. Plans on dc to home today. IMM letter completed. Pt declined to stay 4 hrs.
[2024-08-17 09:14] VITALS: BP 140/64
[2024-08-17] MEDS ORDERED: SUCRALFATE1 GM PO (09:40)
[2024-08-17] MEDS ORDERED: PANTOPRAZOLE SO40 MG PO (09:40)
[2024-08-17 10:53] VITALS: BP 135/77
--- NOTE | 2024-08-20 14:27 | OR ---
[facility] [address], [place] [address] Signed DATE OF OPERATION: 08/16/2024 SURGEON: Alva Sheets MD PREOPERATIVE DIAGNOSES: Melena and anemia (hematocrit 26). POSTOPERATIVE DIAGNOSES: 1. Healing duodenal bulb ulcer. 2. Diverticulosis colon without bleeding. PROCEDURES: 1. Esophagogastroduodenoscopy with biopsy. 2. Total colonoscopy to cecum. ANESTHESIA: Intravenous sedation; propofol infusion, Angelica Abel, SENIOR C DEVELOPER and preop antibiotic Ancef 2 g. INDICATION: This 84-year-old white woman is a patient of Dr. Zoe Luciano and admitted to the hospital by Dr. Patterson for anemia with hematocrit of 26.1 and melena. She has had no hematemesis. She was seen in the hospital a few weeks ago with what was considered hematochezia and with a known history of diverticulosis. Bleeding was attributed to that. She is not undergo imaging or endoscopic evaluation at that time. She did present once again to the ER yesterday with weakness and hematocrit of 26.1, and melena, but without hematemesis or other upper gastrointestinal bleeding that she was clinically apparent. She has had some vague abdominal pain. She has undergone a bowel prep and now to undergo upper endoscopy and colonoscopy on the basis of her melena and her anemia. She understands the risk of the procedures including but not limited to bleeding, infection, and perforation and wished to proceed. FINDINGS: There is no sign of active bleeding. There was no blood within the stomach or duodenum. There was friability of the duodenal mucosa in the bulbar portion and upon close inspection, the healing shallow ulcer. There was no sign of or active bleeding or clot. CLOtest was negative. GE junction had small hiatal hernia. The esophagus was normal. There were no varices and no other sign of lesion to account for anemia. On colonoscopy, the prep was good and complete colonoscopy showed only Electronically Signed By: ALVA SHEETS MD 08/20/24 1427 PATIENT NAME: NARAYAN MICHAELS OPERATIVE REPORT DATE OF : 40 REPORT #: [id number] PHYSICIAN: ALVA SHEETS MD PCP: ZOE LUCIANO MD REPORT IS CONFIDENTIAL AND NOT TO BE RELEASED WITHOUT AUTHORIZATION [facility] [address] [place] [id number] Signed diverticulosis, but no sign of polyps, diverticular bleeding, colitis, or cancer. I am confident the source of anemia was duodenal ulceration. DESCRIPTION OF PROCEDURE: The patient was brought to the surgical endoscopy suite and placed in the lateral decubitus position, given intravenous sedation with propofol infusional technique by the home care and home health aides teacher. Full cardiopulmonary monitoring was maintained. A bite block was placed. An Olympus video upper endoscope was passed in the hypopharynx. The vocal cords appeared normal. Scope was advanced down the esophagus, which was normal. Scope was passed to the stomach which was insufflated with air. There was no sign of blood or clot or other abnormality. Mucosal folds were normal. There is minimal antral erosive change, but no sign of ulceration in the stomach proper. The pylorus was not deformed and the scope was passed through into the duodenum. Immediately noted was abnormal mucosa with bilious appearing changes. The scope was passed to the 2nd and 3rd portions, which were normal. There was no sign of blood clot. The scope was withdrawn to the bulbar portion where easy friability was noted. Close inspection showed a shallow white based ulcer associated with these changes. Biopsies were obtained of the area. Easy bleeding was noted. The scope was then withdrawn to the antrum and biopsies taken there for both CHANDRIKA and pathologic testing. Retroflexed view undertaken showed a somewhat misshapen flap valve but no sign of large hiatal hernia. Scope was withdrawn and biopsies then taken of the distal esophageal mucosa. Further withdrawal of scope showed no other abnormalities. There was no Kaufman's epithelium. Plans were then made for colonoscopy. Digital rectal examination was normal. An Olympus video colonoscope passed in the rectum and manipulated throughout the colon without problem, noting numerous diverticula throughout the sigmoid and left colon. Scope was ultimately passed to the cecum. The ileocecal valve and appendiceal orifice were normal. Scope was withdrawn and careful inspection showed no lesion to account for bleeding or other abnormality at this time. There is certainly no colitis, no polyps, no cancer, only diverticula, which had no stigmata of recent bleeding. The scope was removed and the patient was taken to the recovery room in good condition. CONCLUDING DIAGNOSES: Anemia and melena, likely related to duodenal ulceration. PLAN: We will initiate Carafate as well as PPI medication. We will assure that she is not on nonsteroidal medications. Electronically Signed By: ALVA SHEETS MD 08/20/24 1427 PATIENT NAME: NARAYAN MICHAELS OPERATIVE REPORT DATE OF : 40 REPORT #: [id number] PHYSICIAN: ALVA SHEETS MD PCP: ZOE LUCIANO MD REPORT IS CONFIDENTIAL AND NOT TO BE RELEASED WITHOUT AUTHORIZATION [address] [address] Signed MD CINDY Funk/MODL /[id number] cc: Dr. Zoe Patterson Copies: ~ Electronically Signed By: ALVA SHEETS MD 08/20/24 1427 PATIENT NAME: NARAYAN MICHAELS OPERATIVE REPORT DATE OF : 40 REPORT #: [id number] PHYSICIAN: ALVA SHEETS MD PCP: ZOE LUCIANO MD REPORT IS CONFIDENTIAL AND NOT TO BE RELEASED WITHOUT AUTHORIZATION
--- NOTE | 2024-08-20 14:27 | CONS ---
[facility] [address], [place] [address] Signed DATE OF CONSULTATION: 08/15/2024 REQUESTING PHYSICIAN: Dr. Patterson. PROBLEM: Melena, possible hematochezia. HISTORY OF PRESENT ILLNESS: This 84-year-old white woman is known to me from the past having undergone breast cancer treatment. She presented to the emergency room today and was evaluated by Dr. Morgan, feeling weak and lightheaded. She was noted to have a hematocrit of 26. She had described black stools, but notably a month ago was admitted to the hospital with hematochezia, thought to be related to diverticular disease. She was anemic but did not undergo transfusion. She was only on aspirin at that time. She has no abdominal pain. She has had no dysphagia and has had no hematemesis. She says she does take PPI medication, though it was not listed in her usual medications. She has never had an ulcer. PAST MEDICAL HISTORY: Noted for prior breast cancer treatment, hysterectomy and left knee replacement. She likely has hypertension and dyslipidemia. CURRENT MEDICINES: Include atenolol, anastrozole, tolterodine, duloxetine, atorvastatin, and lisinopril. SOCIAL HISTORY: She is . Her , Samir, is a long-time rancher and markedly debilitated in recent times suffering falls and so forth. He still remains at home, however. REVIEW OF SYSTEMS: She denies any dysphagia or hematemesis. She had abdominal pain and does have some back pain after being in bed. PHYSICAL EXAMINATION: GENERAL: Pleasant white woman, who is completely alert and oriented. BMI is 22.7. NECK: Trachea is midline. She has no hoarseness. CHEST: Clear. HEART: Regular without murmur. ABDOMEN: Nondistended and nontender. There is no ascites. There is no mass. LABORATORY STUDIES: Electronically Signed By: ALVA SHEETS MD 08/20/24 1427 PATIENT NAME: NARAYAN MICHAELS CONSULTATION DATE OF : 40 REPORT #: [id number] PHYSICIAN: ALVA SHEETS MD PCP: CHANG LUCIANO MD REPORT IS CONFIDENTIAL AND NOT TO BE RELEASED WITHOUT AUTHORIZATION [facility] [address], [place] [address] Signed Show a white count of 6.0, hematocrit 26.0, platelets 210,000. Electrolytes were normal with a creatinine of 1.02. Liver enzymes were normal. ASSESSMENT: She has what appears to be melena rather than hematochezia at this time, though several weeks ago, hematochezia was noted and this was attributed to diverticular disease. My review of her imaging studies does not demonstrate a CT scan having been obtained at that time. Her last CT scan was in January of 2022. There were multiple left diverticula noted on that CT scan, however. Under the circumstance, I would recommend upper endoscopy and colonoscopy be undertaken to better characterize the source of her anemia. The risk of bleeding, infection, and perforation related to upper endoscopy and colonoscopy were reviewed as well. She will require prophylactic antibiotics prior to the procedure given her prior joint replacement therapy. She understands plan for endoscopic evaluation and wishes to proceed. We will plan to do this tomorrow allowing for a full bowel prep today. Alva Sheets MD JM/MODL /[id number] cc: Dr. Yesenia Morgan MD Copies: ASHISH MORGAN MD ~ Electronically Signed By: ALVA SHEETS MD 08/20/24 1427 PATIENT NAME: NARAYAN MICHAELS CONSULTATION DATE OF : 40 REPORT #: [id number] PHYSICIAN: ALVA SHEETS MD PCP: CHANG LUCIANO MD REPORT IS CONFIDENTIAL AND NOT TO BE RELEASED WITHOUT AUTHORIZATION
== END 2024-08-17 11:39 | disposition home or self-care (01) | DRG 378 ==
LOC: ED 10:01 → MS 13:32
PROVIDERS: Emergency Medicine; Surgery; ADMIT Student in an Organized Health Care Education/Training Program; ATTEND Family Medicine
PROC: 0DB98ZX Excision of Duodenum, Via Natural or Artificial Opening Endoscopic, Diagnostic (ICD-10-PCS; principal; 2024-08-16 07:30)
PROC: 0DB58ZX Excision of Esophagus, Via Natural or Artificial Opening Endoscopic, Diagnostic (ICD-10-PCS; 2024-08-16 07:30)
DX: K26.4 Chronic or unspecified duodenal ulcer with hemorrhage (principal); D62 Acute posthemorrhagic anemia; K57.31 Diverticulosis of large intestine without perforation or abscess with bleeding; K25.4 Chronic or unspecified gastric ulcer with hemorrhage; Z66 Do not resuscitate; D64.9 Anemia, unspecified; I10 Essential (primary) hypertension; C50.919 Malignant neoplasm of unspecified site of unspecified female breast; F39 Unspecified mood [affective] disorder; Z96.652 Presence of left artificial knee joint; E78.00 Pure hypercholesterolemia, unspecified; K44.9 Diaphragmatic hernia without obstruction or gangrene; Z90.710 Acquired absence of both cervix and uterus; Z87.891 Personal history of nicotine dependence; Z92.21 Personal history of antineoplastic chemotherapy
CPT/HCPCS: 00813; 36415; 80048; 80053; 83735; 85025; 85610; 85730; 86850; 86900; 86901; 88305; 88342; 94760; 96374; 99284-25; A9270; J0690; J2001; J2470; J2704; J7121

== ENCOUNTER 2025-03-03 16:23 | Emergency (ER) | payer OTHER, MEDICARE, BC ==
[~2025-03-03] VITALS: Ht 165.1 cm; Wt 67.7 kg
[~2025-03-03 16:23] MED LIST changes: +HYDROCHLOROTH12.5 MG PO; +I-CAPS WITH LU1 EACH PO; +IRON325 M1 PO; +PANTOPRAZOLE SO40 MG PO; +SUCRALFATE1 GM PO; +VITAMIN C500 M1 PO; +VITAMIN D325 MCG PO
[2025-03-03] MEDS ORDERED: NORVASC5 MG PO (16:34)
[2025-03-03] MEDS ORDERED: VAZALORE81 MG PO (16:34)
[2025-03-03] MEDS ORDERED: MORPHINE SULFATE 4 MG/ML VIAL IV ONE (16:45)
[2025-03-03] MEDS ORDERED: ESTRADIOL42.5 GM TOP (17:31)
[2025-03-03] MEDS ORDERED: TOLTERODINE TART4 MG PO (17:32)
[2025-03-03] MEDS ORDERED: PANTOPRAZOLE SO40 MG PO (17:32)
[2025-03-03] MEDS ORDERED: CYMBALTA30 MG PO (17:34)
[2025-03-03] MEDS ORDERED: ANASTROZOLE1 MG PO (17:34)
[2025-03-03 18:04] VITALS: BP 127/66
== END 2025-03-03 18:04 | disposition home or self-care (01) ==
LOC: ED 16:23
DX: S80.02XA Contusion of left knee, initial encounter (principal); I10 Essential (primary) hypertension; E78.00 Pure hypercholesterolemia, unspecified; W01.0XXA Fall on same level from slipping, tripping and stumbling without subsequent striking against object, initial encounter; Z79.82 Long term (current) use of aspirin; Z79.899 Other long term (current) drug therapy; Z87.891 Personal history of nicotine dependence
CPT/HCPCS: 73560; 96374; 99283-25; J2270